=== PATIENT | male | born 1975 | race Caucasian/White ===

== ENCOUNTER 2023-12-19 20:21 | Emergency (ER) | payer MEDICAID ==
[~2023-12-19] VITALS: Ht 170.2 cm; Wt 104.3 kg
[2023-12-19 20:37] VITALS: BP_SYST 138; PULSE 110; RESP 20; TEMP 99; O2SAT 97
[2023-12-19 21:15] LABS: BASOPHILS # (AUTO) 0.1 K/uL (0.0-0.2); BASOPHILS % (AUTO) 1.4 % (0.0-2.0); EOSINOPHILS # (AUTO) 0.1 K/uL (0.0-0.4); EOSINOPHILS % (AUTO) 1.8 % (0.0-4.0); HEMATOCRIT 37.3 % (36-54); HEMOGLOBIN 12.5 g/dL (14.0-18.0); LYMPHOCYTES # (AUTO) 1.4 K/uL (1.0-5.5); LYMPHOCYTES % (AUTO) 22.6 % (20.5-51.5); MEAN CORPUSCULAR HEMOGLOBIN 28 pg (27-31); MEAN CORPUSCULAR HGB CONC 33 % (32-36); MEAN CORPUSCULAR VOLUME 85 fL (79.0-98.0); MONOCYTES # (AUTO) 0.6 K/uL (0.0-1.0); NEUTROPHILS # (AUTO) 4.1 K/uL (1.8-7.7); NEUTROPHILS % (AUTO) 64.2 % (40.0-70.0); PLATELET COUNT (AUTO) 234 K/uL (130-430); RED CELL DISTRIBUTION WIDTH 15.2 % (9.0-15.0); WHITE BLOOD COUNT (AUTO) 6.4 K/uL (4.8-10.8)
[2023-12-19 22:03] LABS: PROTHROMBIN TIME 9.9 SECS (9.5-12.5)
[2023-12-19 22:28] LABS: CALCIUM 8.2 mg/dL (8.4-11.0); CREATININE 1.03 mg/dL (0.55-1.30); POTASSIUM 3.9 mmol/L (3.5-5.1)
[2023-12-20] MEDS: cefTRIAXone 1 GM in LIDOCAINE 1%, 20 ML MDV 2.1 ML IM ONE (00:25)
[2023-12-20 00:32] VITALS: BP_SYST 138; PULSE 110; RESP 20; O2SAT 97
== END 2023-12-20 00:32 | disposition home or self-care (01) ==
LOC: SED 20:21
DX: R60.0 Localized edema (principal); L03.115 Cellulitis of right lower limb; F15.10 Other stimulant abuse, uncomplicated; Z79.899 Other long term (current) drug therapy
CPT/HCPCS: 99285; 93971; 71045; 80048; 83880; 85025; 85610; 85730; 36415; 83605; 82397; 96372; J0696; J2001